=== PATIENT | female | born 1950 | race Caucasian/White ===

== ENCOUNTER 2017-06-10 16:35 | Emergency (ER) | payer OTHER, MEDICARE ==
--- NOTE | 2017-06-10 16:51 | CPEKG ---
Heart Rate: 59 RR Interval: 1017 P-R Interval: 192 QRSD Interval: 90 QT Interval: 452 QTC Interval: 448 P Warden: -21 QRS Warden: -61 T Wave Warden: 49 EKG Severity - ABNORMAL ECG - EKG Impression: SINUS RHYTHM EKG Impression: LEFT ANTERIOR FASCICULAR BLOCK Electronically Signed By: Lili Casillas 11-Jun-2017 00:54:24
--- NOTE | 2017-06-10 17:34 | EDPHY ---
HPI/HX/ROS/PE/MDM Narrative: CHIEF COMPLAINT: Chest discomfort, hypertension HISTORY OF PRESENT ILLNESS: The patient is a 67 y/o female complaining of chest discomfort and hypertension for the past three days. For the past three days she notes a continuous tightness in her chest with no factors that improve or aggravate the sensation. Normally, her blood pressure is in the 110s/60s. Two days ago, her blood pressure was 123/80 and today her blood pressure was 139 /78. In addition, she has had difficulty falling asleep as she has sensation of her heart pounding when she is laying down. Elevating her feet helped her to fall asleep. She has associated slight shortness of breath. She denies any recent cough, cold, or illness, myalgias, nausea, vomiting, or any other associated symptoms. She denies hypertension, hypercholesterolemia, family history of cardiac conditions, or any other risk factors. No fever, chills, palpitations, vomiting, diarrhea, urinary complaints, headache , lightheadedness. REVIEW OF SYSTEMS: Aside from elements discussed in the HPI, a comprehensive 10-point review of systems was reviewed and is negative. PAST MEDICAL HISTORY: None SOCIAL HISTORY: Lives in [place], retired, PCP: Dr. Bonilla VITAL SIGNS: Reviewed by me GENERAL: Well-developed, well-nourished, resting comfortably in no respiratory distress. HEENT: Atraumatic. Eyes: No icterus, no injection. Mouth: moist mucous membranes. No erythema or lesions. Neck: supple with no adenopathy. LUNGS: Clear to auscultation bilaterally, no wheezes, rhonchi or rales. CARDIAC: Regular rate and rhythm, no rubs, murmurs or gallops. ABDOMEN: Soft, nontender, nondistended, bowel sounds normal. BACK: No CVA tenderness. EXTREMITIES: No trauma. No edema. Range of motion is normal throughout. NEURO: Alert and oriented, grossly nonfocal. SKIN: Warm and dry, no rash. PSYCHIATRIC: Normal mentation, no agitation. ED Course: 12-LEAD EKG: Please see the full report in [facility]. My interpretation: Normal sinus rhythm The patient presents with 3 days of chest tightness and slight shortness of breath. In addition, she has noticed difficulty falling asleep due to a sensation of her heart pounding in her chest. Her ability to sleep in improved when her feet are elevated. Her blood pressure has been elevated at 139/78 ( usually 110s/60s). Her exam is normal. Plan for EKG, chest X-ray, CBC, basic metabolic panel, lipase, liver enzyme, d-dimer, troponin, and creatinine. Her chest X-ray indicates airway disease. EKG is normal. Labs are rather unremarkable. Plan for DuoNeb and reevaluation. I reevaluated the patient following her DuoNeb. Her symptoms are minimally improved. I held a long discussion with the patient regarding her 3 days of chest pain, tightness, and slight shortness of breath. She has a heart score of 2. We discussed admission to the hospital for risk stratification and further evaluation of her symptoms versus close follow-up. Patient preferred to be discharged home. She understands the importance of an urgent stress test. I discharge the patient with albuterol metered dose inhaler to see if this will help with some of her symptoms especially in light of her chest x-ray. MDM: HEART SCORE: History: 0 EK Age: 2 Risk Factors: 0 Troponin: 0 Total: 2 - Data Points Imaging Results: Impression: 1. Possible airways disease. Chest otherwise negative. 2. Constipation. 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, I viewed and interpreted images myself Laboratory Results: Laboratory Results 06/10/17 17:00 06/10/17 17:00 Medications Given: Discontinued Medications Albuterol (Proventil Neb) 3 ml IH EDNOW ONE Stop: 06/10/17 18:58 Last Admin: 06/10/17 19:41 Dose: Not Given Albuterol Sulfate (Proventil Inh Prepack) 1 mdi TAKEHOME EDNOW ONE Stop: 06/10/17 19:42 Last Admin: 06/10/17 19:56 Dose: Not Given Albuterol/Ipratropium (Duoneb) 3 ml IH EDNOW ONE Stop: 06/10/17 18:58 Last Admin: 06/10/17 19:08 Dose: 3 ml Prednisone (Prednisone) 60 mg PO EDNOW ONE Stop: 06/10/17 18:58 Last Admin: 06/10/17 19:08 Dose: 60 mg General Time Seen by Provider: 06/10/17 17:20 Initial Vital Signs: Initial Vital Signs Temperature (C) 37.1 C 06/10/17 16:38 Heart Rate 66 06/10/17 16:38 Respiratory Rate 18 06/10/17 16:38 Blood Pressure 136/67 H 06/10/17 16:38 O2 Sat (%) 99 06/10/17 16:38 O2 Delivery Mode Room Air Allergies/Adverse Reactions: No Known Allergies Allergy (Unverified 06/10/17 16:38) Home Medications: Medication Instructions Recorded NK [No Known Home Meds] 06/10/17 Departure - Departure Disposition: Home, Routine, Self-Care Clinical Impression: Chest discomfort Reactive airway disease Qualifiers: Asthma severity: unspecified severity Asthma persistence: unspecified Asthma complication type: uncomplicated Qualified Code(s): J45.909 - Unspecified asthma , uncomplicated Condition: Good Instructions: Albuterol (By breathing), Chest Pain (ED), Reactive Airways Disease (ED) Additional Instructions: 1. Take the metered dose inhaler 4 times a day as directed. 2. Follow up with your primary care provider in 1 to 2 days to schedule a urgent risk evaluation (stress test). 3. Return to the ER immediately if you experience new, continued chest pain, chest pain that radiates, chest pain accompanied by exertion, sweating, nausea, dizziness, back pain, or any other worsening of condition. Referrals: Chema Bonilla [Primary Care Provider] - As per Instructions Report Scribed for: Lili Casillas Report Scribed by: Hoda Poon Date of Report: 06/10/17 Time of Report: 19:39 Physician Review and Approval Statement: Portions of this note were transcribed by a medical coder. I personally performed a history, physical exam, medical decision making, and confirmed accuracy of information the transcribed note.
[2017-06-10 18:11] LABS: PLATELET COUNT 308 10^3/uL (150-400)
[2017-06-10 18:18] LABS: CREATINE KINASE 49 IU/L (0-156)
[2017-06-10] MEDS ORDERED: predniSONE 20 MG TAB PO ONE (18:57)
[2017-06-10] MEDS ORDERED: IPRATROPIUM/ALBUTEROL 3 ML DEYVIAL IH ONE (18:57)
[2017-06-10] MEDS: ALBUTEROL 3 ML DEYVIAL IH ONE ×2 (19:24→19:41)
[2017-06-10] MEDS ORDERED: ALBUTEROL INH PREPACK MDI TAKEHOME ONE (19:41)
[2017-06-10 19:56] VITALS: BP 125/65
== END 2017-06-10 19:57 | disposition home or self-care (01) ==
DX: J45.909 Unspecified asthma, uncomplicated (principal)
CPT/HCPCS: 71046; 93005; 99285; J7512; J7613